=== PATIENT | male | born 2000 | race African-American/Black ===

== ENCOUNTER 2022-07-07 14:54 | Emergency (ER) | payer BC ==
[~2022-07-07] VITALS: Ht 182.9 cm; Wt 79.5 kg
[2022-07-07 14:59] VITALS: BP 163/94; TEMP 98.2
[2022-07-07] MEDS ORDERED: ZOFRAN ODT4 MG PO (16:21)
[2022-07-07 16:37] VITALS: PULSE 88
== END 2022-07-07 16:37 | disposition home or self-care (01) ==
LOC: COL.ER 14:54
DX: F12.929 Cannabis use, unspecified with intoxication, unspecified (principal); R11.2 Nausea with vomiting, unspecified; L53.8 Other specified erythematous conditions; Z28.311 Partially vaccinated for COVID-19